=== PATIENT | female | born 1965 | race Caucasian/White ===

== ENCOUNTER → 2025-05-20 | Day surgery (SDC) | payer MEDICAID ==
[~2025-05-20] VITALS: Ht 149.9 cm; Wt 75.7 kg
[~2025-05-20] MED LIST: ALBUTEROL (0.083%) 2.5MG/3ML NEB HHN SCH; AMLO10TA80 PO; ATOR10TA PO; BUPIVACAINE HCL/PF 0.5% (5MG/ML) 10ML ONE; DEXAMETHASONE 4MG/ML 1ML VIAL ONE; FAMOTIDINE 20MG/2ML VIAL IV ONE; FENTANYL CITRATE/PF 50MCG/ML 2ML VIAL IV PRN; FENTANYL CITRATE/PF 50MCG/ML 2ML VIAL ONE; GLIM2TAB30 PO; HYDRALAZINE 20MG/ML VIAL IV PRN; HYDROMORPHONE HCL/PF 1MG/ML INJ IV PRN; HYDROMORPHONE HCL/PF 1MG/ML INJ ONE; LABETALOL 5MG/ML 4ML INJ IV PRN; LOSA1TAB34 PO; METF-416 PO; ONDANSETRON HCL 4MG/2ML INJ IV PRN; ONDANSETRON HCL 4MG/2ML INJ ONE; PROPOFOL 200MG/20ML VIAL IV ONE; ROCURONIUM BROMIDE 10MG/ML VIAL 5ML IV ONE; SKIN ADHESIVE 0.7 GM EA TOP ONE; SODIUM CHLORIDE 0.9% 1,000 ML IV SCH
[2025-05-20 13:19] VITALS: BP 118/56; PULSE 62; RESP 15
[2025-05-20] MEDS: ACETAMINOPHEN WITH CODEINE 300/30MG TABLET PO PRN (13:19)
== END | disposition home or self-care (01) ==
LOC: OR 07:17
PROVIDERS: ATTEND Surgery
DX: K80.10 Calculus of gallbladder with chronic cholecystitis without obstruction (principal); E11.9 Type 2 diabetes mellitus without complications; I10 Essential (primary) hypertension; E78.5 Hyperlipidemia, unspecified; Z79.84 Long term (current) use of oral hypoglycemic drugs; Z79.899 Other long term (current) drug therapy; Z98.890 Other specified postprocedural states
CPT/HCPCS: 47562; 82962; 88304; J3010; J0665; J1100; J1308; J2405; J2704; J3490; J1171; J7030